=== PATIENT | male | born 1990 | race Caucasian/White ===

== ENCOUNTER 2017-04-21 16:15 | Emergency (ER) | payer OTHER ==
[~2017-04-21] VITALS: Ht 175.3 cm; Wt 95.0 kg
[2017-04-21 16:16] VITALS: BP 121/77
[2017-04-21] MEDS ORDERED: valACYclovir HCL 500 MG TAB PO ONE (17:45)
[2017-04-21] MEDS ORDERED: VALT1TAB PO (17:46)
== END 2017-04-21 17:52 | disposition home or self-care (01) ==
LOC: M ED 16:15
DX: B02.9 Zoster without complications (principal)